=== PATIENT | female | born 1960 | race Caucasian/White ===

== ENCOUNTER 2020-02-20 12:00 | Outpatient (CLI) | payer BC, SELFPAY | END 2020-02-20 12:30 | disposition home or self-care (01) | LOC: SLB 12:00 → EDSTATUS 03-08 07:30 | PROVIDERS: ATTEND Otolaryngology Plastic Surgery within the Head & Neck | DX: Z01.818 Encounter for other preprocedural examination (principal); Z11.59 Encounter for screening for other viral diseases | CPT/HCPCS: U0003-CS ==